=== PATIENT | male | born 1945 | race Two or more races ===

== ENCOUNTER 2020-02-06 18:43 | Inpatient (IN) | payer SELFPAY ==
[~2020-02-06] VITALS: Ht 160 cm; Wt 83.0 kg
[2020-02-06 20:39] LABS: Basophils # (auto) 0 10 ^3/uL (0-0.2); Basophils % (auto) 0.3 % (0.0-2.0); Eosinophils # (auto) 0 10 ^3/uL (0-0.8); Hematocrit 45.7 % (41.0-53.0); Hemoglobin 15.7 g/dL (13.5-17.5); Lymphocytes # (auto) 0.7 10 ^3/uL (0.4-5.4); Lymphocytes % (auto) 9.3 % (10.0-50.0); Mean Corpuscular Hemoglobin 31.7 pg (28.0-32.0); Mean Corpuscular Hgb Conc. 34.4 g/dL (32.0-36.0); Mean Corpuscular Volume 92.3 fL (80.0-100.0); Monocytes # (auto) 0.5 10 ^3/uL (0-1.3); Monocytes % (auto) 7.7 % (0.0-12.0); Neutrophils # (auto) 5.9 10 ^3/uL (1.6-8.6); Neutrophils % (auto) 82.7 % (37.0-80.0); Nucleated Red Blood Cells % 0.3 %; Platelet Count (auto) 214 10^3/uL (140-450); Red Blood Cells 4.95 10^6/uL (4.5-5.90); Red Cell Distribution Width 13.9 % (11.8-14.3); White Blood Cell 7.1 10^3/uL (4.4-10.8)
[2020-02-06] MEDS ORDERED: ACETAMINOPHEN 325 MG TAB PO ONE (20:45)
[2020-02-06] MEDS ORDERED: cloNIDine HCL 0.1 MG TAB PO ONE (20:45)
[2020-02-06 20:55] LABS: Albumin 3.1 g/dL (3.4-5.0); Calcium 8.2 mg/dL (8.5-10.1); Magnesium 2.3 mg/dL (1.6-2.6); Potassium 3.5 mmol/L (3.5-5.1)
[2020-02-06 21:03] LABS: BUN/Creatinine Ratio 10.6; Bilirubin, Total 0.6 mg/dL (0.2-1.0); CRP High Sensitivity 8.57 mg/dL (< 0.3); Total Protein 7.4 g/dL (6.4-8.2)
[2020-02-06 22:49] LABS: Urine Bacteria FEW /hpf (None Seen); Urine Blood 1+ /uL (Negative); Urine Specific Gravity 1.015 (1.001-1.035); Urine WBC 1 /hpf (0 - 3)
[2020-02-06] MEDS ORDERED: levoFLOXacin 750MG 150 ML IV ONE (23:15)
[2020-02-07] MEDS ORDERED: TEMAZEPAM 15 MG CAP PO PRN (00:30)
[2020-02-07] MEDS ORDERED: cloNIDine HCL 0.1 MG TAB PO PRN (00:30)
[2020-02-07] MEDS ORDERED: NITROGLYCERIN 0.4 MG SL TAB SL PRN (00:30)
[2020-02-07] MEDS ORDERED: MORPHINE SULF INJ 2 MG/ML SYRINGE 1ML IV PRN (00:30)
[2020-02-07] MEDS ORDERED: ACETAMINOPHEN 325 MG TAB PO PRN (00:30)
[2020-02-07] MEDS ORDERED: ONDANSETRON HCL 4 MG/2 ML VIAL IV PRN (00:30)
[2020-02-07 02:02] LABS: Magnesium 2.2 mg/dL (1.6-2.6)
[2020-02-07 05:44] VITALS: BP 158/94
--- NOTE | 2020-02-07 07:29 | NUR ---
Respiratory note: POX CHECK AND ASSESSED PT, HR 74, RR 16, SPO2 97% ON ROOM AIR. BS ARE CLEAR, NO DISTRESS NOTED.
[2020-02-07 08:00] VITALS: BP 170/77
--- NOTE | 2020-02-07 08:00 | NUR ---
ASSESSMENT NOTE PT IS ALERT ORIENTED X4, RESTING IN BED COMFORTABLY, NO DISTRESS NOTED, ABLE TO SELF REPOSITION, AND VERBALSI HIS DEMANDS, AMBULATE NEEDED, OXYGEN 3 L NC, PAIN 0/10, NO ACTIVE COUGH NOTED, CALL LIGHT WITHIN REACH
[2020-02-07 08:11] VITALS: BP 162/93
[2020-02-07] MEDS: FAMOTIDINE 20 MG TAB PO SCH (09:13)
[2020-02-07] MEDS: ASCORBIC ACID 1,000 MG TAB PO SCH (09:14)
[2020-02-07] MEDS: CHOLECALCIFEROL (VITD3) 2,000 UNIT CAP PO SCH (09:14)
[2020-02-07] MEDS: ENOXAPARIN SOD 40 MG/0.4 ML SYRINGE SC SCH (09:15)
[2020-02-07] MEDS: DOXYCYCLINE 100MG/250ML 250 ML IV SCH ×2 (09:37→23:00)
[2020-02-07] MEDS ORDERED: ENOXAPARIN SOD 40 MG/0.4 ML SYRINGE SC SCH (10:00)
[2020-02-07] MEDS ORDERED: ASPirin 81 mg TAB PO SCH (10:00)
[2020-02-07 12:26] VITALS: BP 169/100
[2020-02-07] MEDS ORDERED: FUROSEMIDE 40 MG/4 ML VIAL IV ONE (12:45)
[2020-02-07] MEDS ORDERED: POTASSIUM CHL 20 Meq TABLET PO ONE (12:45)
[2020-02-07] MEDS ORDERED: METOPROLOL TARTRATE 25 MG TAB PO ONE (12:45)
[2020-02-07 16:22] VITALS: BP 165/98
--- NOTE | 2020-02-07 16:52 | NUR ---
PT CONTINUE STABLE, OXYGEN 3 L NC, ABLE TO AMBULATE TO BATHROOM NEEDED
[2020-02-07] MEDS: FUROSEMIDE 40 MG/4 ML VIAL IV SCH (17:49)
--- NOTE | 2020-02-07 18:00 | NUR ---
PT IS SITTING AT THE SIDE OF THE BED EATING DINNER, NO DISTRESS NOTED, CONTINUE MONITORING
--- NOTE | 2020-02-07 18:56 | NUR ---
PT CONTINUE STABLE, NO DISTRESS NOTED, CONTINUE MONITORING
--- NOTE | 2020-02-07 19:20 | NUR ---
Opening Shift Note Assumed care of patient, awake and alert. No S/S of distress, O2 in place denies pain. Instructed on POC and to call for assist PRN, will continue to monitor for changes Q1hr and PRN.
[2020-02-07 22:00] VITALS: BP 164/81
[2020-02-07] MEDS ORDERED: ATORVASTATIN 20 MG TAB PO SCH (22:00)
[2020-02-07] MEDS: BUDESONIDE (INHALATION) 180 MCG IH IN SCH (22:00)
[2020-02-07] MEDS: POTASSIUM CHL 20 Meq TABLET PO SCH (23:01)
[2020-02-07] MEDS: METOPROLOL TARTRATE 25 MG TAB PO SCH (23:02)
[2020-02-08 01:14] VITALS: BP 146/77
[2020-02-08 05:00] VITALS: BP 105/66
[2020-02-08] MEDS: FUROSEMIDE 40 MG/4 ML VIAL IV SCH (06:00)
[2020-02-08 06:39] LABS: Basophils # (auto) 0 10 ^3/uL (0-0.2); Basophils % (auto) 0.2 % (0.0-2.0); Eosinophils # (auto) 0 10 ^3/uL (0-0.8); Eosinophils % (auto) 0.1 % (0.0-7.0); Hematocrit 45.1 % (41.0-53.0); Hemoglobin 15.6 g/dL (13.5-17.5); Lymphocytes # (auto) 0.8 10 ^3/uL (0.4-5.4); Lymphocytes % (auto) 12.1 % (10.0-50.0); Mean Corpuscular Hemoglobin 32.1 pg (28.0-32.0); Mean Corpuscular Hgb Conc. 34.5 g/dL (32.0-36.0); Mean Corpuscular Volume 92.9 fL (80.0-100.0); Monocytes # (auto) 0.5 10 ^3/uL (0-1.3); Neutrophils # (auto) 5.3 10 ^3/uL (1.6-8.6); Neutrophils % (auto) 80.6 % (37.0-80.0); Nucleated Red Blood Cells % 0.4 %; Platelet Count (auto) 231 10^3/uL (140-450); Red Blood Cells 4.85 10^6/uL (4.5-5.90); Red Cell Distribution Width 14.1 % (11.8-14.3); White Blood Cell 6.5 10^3/uL (4.4-10.8)
[2020-02-08 07:00] LABS: Calcium 8.3 mg/dL (8.5-10.1); Potassium 3.2 mmol/L (3.5-5.1)
[2020-02-08 07:03] LABS: BUN/Creatinine Ratio 12.9; Bilirubin, Total 0.8 mg/dL (0.2-1.0); Total Protein 7.4 g/dL (6.4-8.2)
[2020-02-08 08:00] VITALS: BP 105/66
--- NOTE | 2020-02-08 08:00 | NUR ---
ASSESSMENT NOTE PT IS ALERT ORIENTED X4, RESTING IN BED COMFORTABLY, NO DISTRESS NOTED, ABLE TO SELF REPOSITION, AND VERBALIS HIS DEMANDS, AMBULATE NEEDED, PT MOST OF THE TIME IN ROOM AIR SAT 96 % PAIN 0/10, NO ACTIVE COUGH NOTED, CALL LIGHT WITHIN REACH
[2020-02-08] MEDS: BUDESONIDE (INHALATION) 180 MCG IH IN SCH (08:55)
[2020-02-08 09:00] VITALS: BP 129/79
[2020-02-08] MEDS ORDERED: cefTRIAXone 1GM/50ML D5W 50 ML IV SCH (09:00)
[2020-02-08] MEDS: POTASSIUM CHL 20 Meq TABLET PO SCH (09:16)
[2020-02-08] MEDS: ASCORBIC ACID 1,000 MG TAB PO SCH (09:17)
[2020-02-08] MEDS: FAMOTIDINE 20 MG TAB PO SCH (09:17)
[2020-02-08] MEDS: CHOLECALCIFEROL (VITD3) 2,000 UNIT CAP PO SCH (09:17)
[2020-02-08] MEDS: ENOXAPARIN SOD 40 MG/0.4 ML SYRINGE SC SCH (09:18)
[2020-02-08] MEDS: METOPROLOL TARTRATE 25 MG TAB PO SCH (09:18)
[2020-02-08] MEDS: DOXYCYCLINE 100MG/250ML 250 ML IV SCH (09:47)
--- NOTE | 2020-02-08 09:50 | NUR ---
DR AZAR CALLED AFTER REVIEWING PT CHART, INFORM ME THAT THERE CHEST X ORDER AND FROM THERE WILL DECIDE IF WE WILL DISCHARGE PT HOME
[2020-02-08] MEDS ORDERED: ASPirin 81 mg TAB PO SCH (10:00)
[2020-02-08] MEDS ORDERED: amLODIPine BESYLATE 5 MG TAB PO SCH ×2 (10:00)
[2020-02-08] MEDS ORDERED: DexAMETHasone 4 MG TAB PO SCH (10:00)
--- NOTE | 2020-02-08 12:00 | NUR ---
DR AZAR AT BED SIDE FOLLOWING UP ON PT WITH DISCHARGE HOME INSTRUCTION, ADVICE PT TO REST AT HOME AND NOT TO MAKE TOO MUCH ACTIVITY OTHERWISE WILL GET WORSE
[2020-02-08 13:00] VITALS: BP 148/84
[2020-02-08 14:29] VITALS: BP 129/79
--- NOTE | 2020-02-08 14:30 | NUR ---
DR AZAR CALLED IN THE NEW RX TO [facility], THEN CALLED PATIENT'S DAUGHTER WITH THE DISCHARGE HOME INSTRUCTION, AND MADE HER AWARE THAT HER FATHER HAS A NEW RX, DAUGHTER INFORM DR AZAR THAT SHE WILL PICK IT UP AND PAY FOR IT
--- NOTE | 2020-02-08 16:30 | NUR ---
[facility] DELIVERED NEW PRESCRIBED HOME MEDICATIONS
--- NOTE | 2020-02-08 17:05 | NUR ---
Discharge instructions given as ordered. Encourage to follow up with PMD as instructed. All questions and concerns addressed. Patient verbalized understanding. Medication reconciliation form completed and copy given to patient., and needed vaccines given. IV removed with catheter intact, pressure dressing applied. Telemetry unit returned to ICU. Patient taken to vehicle via wheelchair with all personal belongings, accompanied by staff . No distress noted at time of departure. House keeping, shanker out, security, followed patient out , kept the hospital environment clean and safe
[2020-02-08] MEDS ORDERED: DOXYCYCLINE 100 MG TAB/CAP PO SCH (22:00)
== END 2020-02-08 17:05 | disposition home or self-care (01) | DRG 871 ==
LOC: ER 18:43 → TELE 18:44 → TELE-EAST 02-07 05:12
PROVIDERS: ADMIT Nurse Practitioner; ATTEND Internal Medicine
DX: A41.89 Other specified sepsis (principal); I21.A1 Myocardial infarction type 2; I50.31 Acute diastolic (congestive) heart failure; J12.89 Other viral pneumonia; J96.01 Acute respiratory failure with hypoxia; U07.1 COVID-19; E44.1 Mild protein-calorie malnutrition; I13.0 Hypertensive heart and chronic kidney disease with heart failure and stage 1 through stage 4 chronic kidney disease, or unspecified chronic kidney disease; I16.1 Hypertensive emergency; N17.9 Acute kidney failure, unspecified; N18.3 Chronic kidney disease, stage 3 (moderate); I25.10 Atherosclerotic heart disease of native coronary artery without angina pectoris; Z68.32 Body mass index [BMI] 32.0-32.9, adult
CPT/HCPCS: 36415; 71045; 80053; 81001; 82728; 83605; 83615; 83735; 83880; 84484; 85025; 85379; 86141; 87040; 87070; 87804; 87880; 94640; 96365; 96367; 96375; G0378; J0696; J1956; J3490

== ENCOUNTER 2020-11-21 18:31 | Inpatient (IN) | payer MEDICARE, OTHER ==
[~2020-11-21] VITALS: Ht 157.5 cm; Wt 82.8 kg
[2020-11-21 19:14] LABS: Basophils # (auto) 0.1 10 ^3/uL (0-0.2); Basophils % (auto) 0.7 % (0.0-2.0); Eosinophils # (auto) 0 10 ^3/uL (0-0.8); Eosinophils % (auto) 0.3 % (0.0-7.0); Hematocrit 39.6 % (41.0-53.0); Hemoglobin 13.4 g/dL (13.5-17.5); Lymphocytes # (auto) 0.5 10 ^3/uL (0.4-5.4); Lymphocytes % (auto) 4.5 % (10.0-50.0); Mean Corpuscular Hemoglobin 31.5 pg (28.0-32.0); Mean Corpuscular Volume 92.8 fL (80.0-100.0); Monocytes # (auto) 0.9 10 ^3/uL (0-1.3); Monocytes % (auto) 7.6 % (0.0-12.0); Neutrophils # (auto) 10.1 10 ^3/uL (1.6-8.6); Neutrophils % (auto) 86.9 % (37.0-80.0); Red Blood Cells 4.26 10^6/uL (4.5-5.90); Red Cell Distribution Width 14.2 % (11.8-14.3); White Blood Cell 11.7 10^3/uL (4.4-10.8)
[2020-11-21 19:29] LABS: Albumin 2.6 g/dL (3.4-5.0); Calcium 7.8 mg/dL (8.5-10.1); Potassium 3.1 mmol/L (3.5-5.1)
[2020-11-21 19:35] LABS: BUN/Creatinine Ratio 13.4; Bilirubin, Total 0.6 mg/dL (0.2-1.0); Total Protein 6.7 g/dL (6.4-8.2)
[2020-11-21] MEDS ORDERED: CALCIUM GLUC 1,000mg/50ml-NS 50 ML IV ONE (20:45)
[2020-11-21] MEDS: POTASSIUM CHL 20MEQ/100ML 100 ML IV SCH ×2 (21:10→22:45)
[2020-11-21 22:12] LABS: Urine Amorphous Crystal FEW /hpf (None Seen); Urine Bacteria FEW /hpf (None Seen); Urine Blood 2+ /uL (Negative); Urine Specific Gravity 1.014 (1.001-1.035); Urine WBC 2 /hpf (0 - 3)
[2020-11-22] MEDS ORDERED: cefTRIAXone 1GM/50ML D5W 50 ML IV ONE (03:15)
[2020-11-22] MEDS ORDERED: ALBUTEROL SULF 2.5 MG/0.5ML(0.5%) NEB SOLN NEB PRN (04:00)
[2020-11-22] MEDS ORDERED: ONDANSETRON HCL 4 MG/2 ML VIAL IV PRN (04:00)
[2020-11-22] MEDS ORDERED: NITROGLYCERIN 0.4 MG SL TAB SL PRN (04:00)
[2020-11-22] MEDS ORDERED: ACETAMINOPHEN 325 MG TAB PO PRN (04:00)
[2020-11-22] MEDS ORDERED: MORPHINE SULFATE INJECTION 2 MG/ML SYRG IV PRN (04:00)
[2020-11-22] MEDS ORDERED: SODIUM CHLORIDE 0.9% 500 ML IV ONE (04:00)
[2020-11-22 04:19] VITALS: BP 122/72
[2020-11-22] MEDS: SODIUM CHLORIDE 0.9% 1,000 ML IV SCH ×2 (04:45→20:40)
[2020-11-22 08:00] VITALS: BP 165/84
[2020-11-22] MEDS: ASPirin 81 mg TAB PO SCH (08:37)
[2020-11-22] MEDS: cefTRIAXone 1GM/50ML D5W 50 ML IV SCH (08:37)
[2020-11-22] MEDS: AZITHROMYCIN 500MG/ 250ML 250 ML IV SCH (08:37)
[2020-11-22] MEDS: METOPROLOL SUCCINATE XL 50 MG TAB PO SCH (08:38)
[2020-11-22] MEDS: PANTOPRAZOLE 40 MG TAB PO SCH (08:38)
[2020-11-22] MEDS ORDERED: LISINOPRIL 5 MG TAB PO SCH (10:00)
[2020-11-22] MEDS ORDERED: ATOR40TA52 PO (10:02)
[2020-11-22] MEDS ORDERED: METO-289 PO (10:02)
[2020-11-22] MEDS ORDERED: LISI-716 PO (10:02)
[2020-11-22 11:28] LABS: Basophils # (auto) 0.1 10 ^3/uL (0-0.2); Basophils % (auto) 0.6 % (0.0-2.0); Eosinophils # (auto) 0 10 ^3/uL (0-0.8); Eosinophils % (auto) 0.4 % (0.0-7.0); Hematocrit 37.3 % (41.0-53.0); Hemoglobin 12.8 g/dL (13.5-17.5); Lymphocytes # (auto) 0.5 10 ^3/uL (0.4-5.4); Mean Corpuscular Hemoglobin 32.2 pg (28.0-32.0); Mean Corpuscular Hgb Conc. 34.3 g/dL (32.0-36.0); Mean Corpuscular Volume 93.9 fL (80.0-100.0); Monocytes # (auto) 0.7 10 ^3/uL (0-1.3); Monocytes % (auto) 6.9 % (0.0-12.0); Neutrophils # (auto) 8.7 10 ^3/uL (1.6-8.6); Neutrophils % (auto) 87.1 % (37.0-80.0); Red Blood Cells 3.98 10^6/uL (4.5-5.90); Red Cell Distribution Width 14.5 % (11.8-14.3); White Blood Cell 9.9 10^3/uL (4.4-10.8)
[2020-11-22 11:45] LABS: Albumin 2.3 g/dL (3.4-5.0); Potassium 3.9 mmol/L (3.5-5.1)
[2020-11-22 11:50] LABS: BUN/Creatinine Ratio 15.2; Bilirubin, Total 0.3 mg/dL (0.2-1.0); Total Protein 6.2 g/dL (6.4-8.2)
[2020-11-22] MEDS: Glucerna Carbsteady SHAKE Vanilla 8oz PO SCH ×2 (12:00→17:41)
[2020-11-22 12:34] VITALS: BP 136/80
[2020-11-22 15:14] LABS: Magnesium 2.7 mg/dL (1.6-2.6); Phosphorus 2.6 mg/dL (2.5-4.90)
[2020-11-22 15:34] LABS: Protein, Urine 54.2 mg/dL (0.0-11.9)
[2020-11-22 15:38] LABS: Urine Bacteria FEW /hpf (None Seen); Urine Blood 1+ /uL (Negative); Urine WBC 1 /hpf (0 - 3)
[2020-11-22 16:36] VITALS: BP 146/84
[2020-11-22] MEDS: ATORVASTATIN 20 MG TAB PO SCH (21:27)
[2020-11-22 22:00] VITALS: BP 133/59
[2020-11-22] MEDS ORDERED: LORazepam 2MG/ML-1ML VIAL IV PRN (22:45)
[2020-11-23 01:23] LABS: Cholesterol < 50 mg/dL (< 200)
[2020-11-23 01:27] LABS: HDL Cholesterol 12 mg/dL (40-59); LDL Cholesterol 27 mg/dL (< 100); Triglycerides 110 mg/dL (< 150)
[2020-11-23 05:00] VITALS: BP 130/67
[2020-11-23 07:46] LABS: Basophils # (auto) 0 10 ^3/uL (0-0.2); Basophils % (auto) 0.5 % (0.0-2.0); Eosinophils # (auto) 0.2 10 ^3/uL (0-0.8); Eosinophils % (auto) 2.1 % (0.0-7.0); Hematocrit 34.9 % (41.0-53.0); Hemoglobin 12.1 g/dL (13.5-17.5); Lymphocytes # (auto) 0.6 10 ^3/uL (0.4-5.4); Mean Corpuscular Hemoglobin 32.1 pg (28.0-32.0); Mean Corpuscular Hgb Conc. 34.5 g/dL (32.0-36.0); Mean Corpuscular Volume 93.1 fL (80.0-100.0); Monocytes # (auto) 0.9 10 ^3/uL (0-1.3); Monocytes % (auto) 9.8 % (0.0-12.0); Neutrophils # (auto) 7.3 10 ^3/uL (1.6-8.6); Neutrophils % (auto) 80.6 % (37.0-80.0); Nucleated Red Blood Cells % 0.1 %; Red Blood Cells 3.75 10^6/uL (4.5-5.90); Red Cell Distribution Width 14.3 % (11.8-14.3); White Blood Cell 9.1 10^3/uL (4.4-10.8)
[2020-11-23 07:53] LABS: Calcium 7.8 mg/dL (8.5-10.1); Potassium 3.9 mmol/L (3.5-5.1)
[2020-11-23] MEDS: Glucerna Carbsteady SHAKE Vanilla 8oz PO SCH ×3 (08:00→18:00)
[2020-11-23 08:01] LABS: BUN/Creatinine Ratio 15.7; Bilirubin, Total 0.4 mg/dL (0.2-1.0); Total Protein 5.6 g/dL (6.4-8.2)
[2020-11-23 09:00] VITALS: BP 132/97
[2020-11-23] MEDS: cefTRIAXone 1GM/50ML D5W 50 ML IV SCH (09:47)
[2020-11-23] MEDS: AZITHROMYCIN 500MG/ 250ML 250 ML IV SCH (09:48)
[2020-11-23] MEDS: ASPirin 81 mg TAB PO SCH (09:48)
[2020-11-23] MEDS: CHOLECALCIFEROL (VITD3) 2,000 UNIT CAP/TAB PO SCH (09:48)
[2020-11-23] MEDS: PANTOPRAZOLE 40 MG TAB PO SCH (09:48)
[2020-11-23] MEDS: METOPROLOL SUCCINATE XL 50 MG TAB PO SCH (09:48)
[2020-11-23 13:00] VITALS: BP 162/93
[2020-11-23] MEDS: SODIUM CHLORIDE 0.9% 1,000 ML IV SCH (13:20)
[2020-11-23 17:00] VITALS: BP 160/93
[2020-11-23] MEDS: cloNIDine HCL 0.1 MG TAB PO PRN (17:10)
[2020-11-23 22:00] VITALS: BP 153/83
[2020-11-23] MEDS: ATORVASTATIN 20 MG TAB PO SCH (22:00)
[2020-11-24 04:55] LABS: Basophils # (auto) 0 10 ^3/uL (0-0.2); Basophils % (auto) 0.6 % (0.0-2.0); Eosinophils # (auto) 0.2 10 ^3/uL (0-0.8); Eosinophils % (auto) 3.9 % (0.0-7.0); Hematocrit 36.5 % (41.0-53.0); Hemoglobin 12.4 g/dL (13.5-17.5); Lymphocytes # (auto) 0.7 10 ^3/uL (0.4-5.4); Lymphocytes % (auto) 10.9 % (10.0-50.0); Mean Corpuscular Hemoglobin 31.4 pg (28.0-32.0); Mean Corpuscular Hgb Conc. 33.8 g/dL (32.0-36.0); Mean Corpuscular Volume 92.8 fL (80.0-100.0); Monocytes # (auto) 0.6 10 ^3/uL (0-1.3); Monocytes % (auto) 8.9 % (0.0-12.0); Neutrophils # (auto) 4.7 10 ^3/uL (1.6-8.6); Neutrophils % (auto) 75.7 % (37.0-80.0); Nucleated Red Blood Cells % 0.2 %; Red Blood Cells 3.94 10^6/uL (4.5-5.90); Red Cell Distribution Width 14.3 % (11.8-14.3); White Blood Cell 6.2 10^3/uL (4.4-10.8)
[2020-11-24 05:00] VITALS: BP 159/89
[2020-11-24 05:19] LABS: Calcium 8.1 mg/dL (8.5-10.1); Potassium 3.9 mmol/L (3.5-5.1)
[2020-11-24 05:22] LABS: BUN/Creatinine Ratio 18.1
[2020-11-24] MEDS: SODIUM CHLORIDE 0.9% 1,000 ML IV SCH (05:27)
[2020-11-24 08:00] VITALS: BP 154/89
[2020-11-24] MEDS: Glucerna Carbsteady SHAKE Vanilla 8oz PO SCH ×2 (08:00→12:07)
[2020-11-24] MEDS: cefTRIAXone 1GM/50ML D5W 50 ML IV SCH (08:52)
[2020-11-24] MEDS: AZITHROMYCIN 500MG/ 250ML 250 ML IV SCH (09:48)
[2020-11-24] MEDS: PANTOPRAZOLE 40 MG TAB PO SCH (09:48)
[2020-11-24] MEDS: CHOLECALCIFEROL (VITD3) 2,000 UNIT CAP/TAB PO SCH (09:49)
[2020-11-24] MEDS: METOPROLOL SUCCINATE XL 50 MG TAB PO SCH (09:49)
[2020-11-24] MEDS ORDERED: ASPirin 81 mg TAB PO SCH (10:00)
[2020-11-24 12:00] VITALS: BP 167/91
[2020-11-24] MEDS: cloNIDine HCL 0.1 MG TAB PO PRN (12:07)
[2020-11-24 13:03] VITALS: BP 167/91
[2020-11-25 12:56] LABS: Free T4 (Free Thyroxine) 1.02 ng/dL (0.89-1.76)
[2020-11-25 12:57] LABS: Folate (Folic Acid) 11.81 ng/mL (5.38-24)
== END 2020-11-24 14:43 | disposition home or self-care (01) | DRG 64 ==
LOC: ER 18:31 → TELE 18:32 → UNDOADMIN 18:32 → TELE 11-22 03:58 → TELE-WESTW 11-22 07:57
PROVIDERS: ADMIT Nurse Practitioner; ATTEND Internal Medicine
DX: I63.9 Cerebral infarction, unspecified (principal); I21.4 Non-ST elevation (NSTEMI) myocardial infarction; N17.0 Acute kidney failure with tubular necrosis; E43 Unspecified severe protein-calorie malnutrition; J18.9 Pneumonia, unspecified organism; E87.6 Hypokalemia; E78.5 Hyperlipidemia, unspecified; E11.22 Type 2 diabetes mellitus with diabetic chronic kidney disease; I12.9 Hypertensive chronic kidney disease with stage 1 through stage 4 chronic kidney disease, or unspecified chronic kidney disease; E55.9 Vitamin D deficiency, unspecified; Z20.822 Contact with and (suspected) exposure to COVID-19; D63.8 Anemia in other chronic diseases classified elsewhere; R26.2 Difficulty in walking, not elsewhere classified; R80.9 Proteinuria, unspecified; E66.9 Obesity, unspecified; R53.1 Weakness; I25.10 Atherosclerotic heart disease of native coronary artery without angina pectoris; N18.32 Chronic kidney disease, stage 3b; Z79.82 Long term (current) use of aspirin; Z79.899 Other long term (current) drug therapy; Z86.16 Personal history of COVID-19; Z86.73 Personal history of transient ischemic attack (TIA), and cerebral infarction without residual deficits; Z87.01 Personal history of pneumonia (recurrent); Z87.891 Personal history of nicotine dependence; Z68.32 Body mass index [BMI] 32.0-32.9, adult
CPT/HCPCS: 36415; 70450; 70551; 71045; 76775; 80048; 80053; 80061; 81001; 82306; 82570; 82607; 82746; 83036; 83735; 83970; 84100; 84156; 84300; 84439; 84443; 84484; 85025; 87040; 87070; 87086; 87205; 87426; 93005; 93306; 93886; 96361; 96365; 96367; G0378; J0696; J3480